=== PATIENT | male | born 1975 | race Hispanic/Latino ===

== ENCOUNTER 2025-02-05 17:44 | Emergency (ER) | payer SELFPAY ==
[2025-02-05] MEDS ORDERED: Tetracaine 0.5% PF 4 ML BOT ONE (17:55)
[2025-02-05] MEDS ORDERED: Fluorescein Opthalmic Strip ONE (17:55)
== END 2025-02-05 18:24 | disposition home or self-care (01) ==
LOC: BURERS 17:44
DX: T15.02XA Foreign body in cornea, left eye, initial encounter (principal); W44.8XXA Other foreign body entering into or through a natural orifice, initial encounter
CPT/HCPCS: 99283